=== PATIENT | male | born 1980 | race Caucasian/White ===

== ENCOUNTER 2020-10-17 04:38 | Emergency (ER) | payer OTHER ==
[~2020-10-17] VITALS: Ht 185.4 cm; Wt 122.8 kg
[2020-10-17 04:38] VITALS: BP 163/106
[2020-10-17] MEDS ORDERED: ONDANSETRON PF 4 MG/2 ML VIAL. IVP ONE (05:30)
[2020-10-17] MEDS ORDERED: MORPHINE SULFATE 4 MG/ML DISP.SYRIN. IV ONE (05:30)
[2020-10-17] MEDS ORDERED: IV RINGERS SOLUTION,LACTATED 1,000 ML IV ONE (05:30)
--- NOTE | 2020-10-17 05:47 | PHYS DOC ---
Adult General HPI HPI Patient is a 40-year-old male who presents to the emergency department with a chief complaint of right upper quadrant and right flank pain for approximately 7 months. States he is in the and retired and [facility] with these complaints and has yet to have any scans done or labs. States that he has had no relief from this pain and [facility] not [facility] so he decided to come to an outside emergency department. States over the last 6 or 7 months he has relatively constant pain at approximately a 2 or 3 out of 10, dull and achy in nature with episodes intermittently up to a 7 out of 10 with associated nausea but no vomiting. States that it sometimes does seem affected by what he eats, if he eats a salad is a little more tolerable but if he tries to eat any heavier foods such as a burger it will cause him to have an episode of pain with pain in his epigastrium, right upper quadrant right fla nk and severe nausea. States that the episodes usually last an hour or 2. States he does have a history of multiple hernia repairs and an appendectomy for perforated appendix when he was in [place]. Denies any alcohol or tobacco use. Endorses occasional marijuana use. Denies any headache, chest pain, shortness of breath, diarrhea, dysuria, hematuria or blood in the stool. (PRAVEEN RYAN MD) Review of Systems Review of Systems Review of systems otherwise unremarkable except noted in HPI (PRAVEEN RYAN MD) Current Medications Current Medications Current Medications Medications (Trade) Dose Ordered Sig/[place] Start Time Stop Time Status Last Admin Dose Admin Lactated Ringer's 1,000 ml @ 1,000 mls/hr 1X ONCE 10/17/20 05:30 10/17/20 06:29 UNV Morphine Sulfate (Morphine 4mg Syringe) 4 mg 1X ONCE 10/17/20 05:30 10/17/20 05:31 UNV Ondansetron HCl (Zofran) 4 mg 1X ONCE 10/17/20 05:30 10/17/20 05:31 UNV (PRAVEEN RYAN MD) Physical Exam Physical Exam Constitutional: Well developed, well nourished, no acute distress, non-toxic appearance. [] HENT: Normocephalic, atraumatic, bilateral external ears normal, oropharynx moist, no oral exudates, nose normal. [] Eyes: conjunctiva normal, no discharge. [] Neck: Normal range of motion, no tenderness, supple, no stridor. [] Cardiovascular:Heart rate regular rhythm, no murmur [] Lungs & Thorax: Bilateral breath sounds clear to auscultation [] Abdomen: Tenderness in the epigastrium, right upper quadrant and right flank. Belly soft, no obvious masses felt. No rebound or guarding. Skin: Warm, dry, no erythema, no rash. [] Back: No tenderness, Extremities: No tenderness, no cyanosis, no clubbing, ROM intact, no edema. [] Neurologic: Alert and oriented X 3, normal motor function, normal sensory function, no focal deficits noted. [] Psychologic: Affect normal, judgement normal, mood normal. [] (PRAVEEN RYAN MD) EKG EKG EKG with a rate of 68, QRS of 90, QTc of 394, no STEMI [] (PRAVEEN RYAN MD) Radiology/Procedures Radiology/Procedures [] (PRAVEEN RYAN MD) Radiology/Procedures PROCEDURE: CT ABD PELV W/ IV CONTRST ONLY EXAM: CT ABDOMEN/PELVIS WITH CONTRAST. HISTORY: Right flank and abdominal pain. TECHNIQUE: Computed tomography of the abdomen and pelvis was performed after the intravenous administration of iodinated contrast. One or more of the following individualized dose reduction techniques were utilized for this examination: 1. Automated exposure control. 2. Adjustment of the mA and/or kV according to patient size. 3. Use of iterative reconstruction technique. COMPARISON: None. FINDINGS: Lung windows through the visualized portions of the bases reveal mild atelectasis. Bone windows reveal no suspicious lesions. Diffuse hepatic steatosis is moderate to severe. There is focal fatty sparing along the gallbladder fossa. The pancreas, adrenal glands, gallbladder, kidneys and spleen are unremarkable. There are no pathologically enlarged lymph nodes. The left colon is decompressed but there is suggestion of mild wall thickening. The appendix is surgically absent. There is no small bowel obstruction. There are changes of mesh repair of an umbilical hernia. IMPRESSION: 1. Moderate to severe diffuse hepatic steatosis. 2. Correlate for mild left colitis. EXAM: CHEST ONE VIEW. HISTORY: Cough. COMPARISON: None. FINDINGS: A frontal view of the chest is obtained. There are no confluent infiltrates. There is no pneumothorax or pleural effusion. The heart is not enlarged. IMPRESSION: 1. No confluent infiltrates. (MILAGROS JAY MD) Heart Score Risk Factors: Risk Factors: DM, Current or recent (<one month) smoker, HTN, HLP, family history of CAD, obesity. Risk Scores: Risk Factors: DM, Current or recent (<one month) smoker, HTN, HLP, family history of CAD, obesity. (PRAVEEN RYAN MD) Course & Med Decision Making Course & Med Decision Making Patient is a 40-year-old male who presents with 7 months of right upper quadrant, right flank and epigastric pain associated with nausea Vital signs not concerning. Physical exam noted above. Patient placed on the monitor with IV access established. Started on IV fluid resuscitation. Given Zofran for nausea and morphine for pain. EKG noted above with no STEMI. Patient continued evaluation and treatment handed off to day team. [] (PRAVEEN RYAN MD) Dragon Disclaimer Dragon Disclaimer This electronic medical record was generated, in whole or in part, using a voice recognition dictation system. (PRAVEEN RYAN MD) Departure Departure: Impression: Primary Impression: Right upper quadrant pain Additional Impressions: Right flank pain Epigastric pain Nausea Hepatic steatosis Disposition: 01 DC HOME SELF CARE/HOMELESS Condition: STABLE Referrals: PCP,UNKNOWN (PCP) MISAEL GRIMES MD Patient Instructions: Nausea, Adult Scripts Ondansetron (ONDANSETRON ODT) 4 Mg Tab.rapdis 1 TAB PO PRN Q6-8HRS PRN for NAUSEA for 5 Days, #16 TAB Prov: MILAGROS JAY MD 10/17/20 Problem Qualifiers PRAVEEN RYAN MD Oct 17, 2020 05:47 MILAGROS JAY MD Oct 17, 2020 07:23
[2020-10-17] MEDS ORDERED: IOHEXOL 300 MG/ML 75 ML VIAL. IV ONE (06:00)
[2020-10-17] MEDS ORDERED: CONTRAST GIVEN. MC PRN (06:00)
[2020-10-17 06:17] LABS: BASO # 0.1 x10^3/uL (0.0-0.2); BASO % 1 % (0-3); EOS # 0.3 x10^3/uL (0.0-0.7); EOS % 4 % (0-3); HEMATOCRIT 55.7 % (39.0-53.0); HEMOGLOBIN 18.6 g/dL (13.0-17.5); LYMPH # 2.4 x10^3/uL (1.0-4.8); LYMPH % 25 % (24-48); MEAN CORPUSCULAR HEMOGLOBIN 31 pg (25-35); MEAN CORPUSCULAR HGB CONC 33 g/dL (31-37); MEAN CORPUSCULAR VOLUME 92 fL (79-100); MONO # 0.6 x10^3/uL (0.0-1.1); MONO % 6 % (0-9); NEUT # 6.5 x10^3uL (1.8-7.7); NEUT % 65 % (31-73); PLATELET COUNT 166 x10^3/uL (140-400); RED BLOOD COUNT 6.05 x10^6/uL (4.30-5.70); RED CELL DISTRIBUTION WIDTH 13.8 % (11.5-14.5); WHITE BLOOD COUNT 9.9 x10^3/uL (4.0-11.0)
[2020-10-17 06:21] LABS: CALCIUM 9.3 mg/dL (8.5-10.1); GFR 82.8; POTASSIUM 4.2 mmol/L (3.5-5.1)
[2020-10-17 06:21] LABS: BARBITURATES NEG (NEG); BENZODIAZEPINES NEG (NEG); CANNABINOIDS POS (NEG); COCAINE NEG (NEG); METHADONE NEG (NEG); OPIATES NEG (NEG); PHENCYCLIDINE NEG (NEG)
[2020-10-17 06:22] LABS: AMPHETAMINE/METHAMPHETAMINE NEG (NEG)
--- NOTE | 2020-10-17 06:24 | RAD ---
EXAM: CHEST ONE VIEW. HISTORY: Cough. COMPARISON: None. FINDINGS: A frontal view of the chest is obtained. There are no confluent infiltrates. There is no pneumothorax or pleural effusion. The heart is not en larged. IMPRESSION: 1. No confluent infiltrates. Electronically signed by: Sean Baird MD (10/17/2020 6:22 AM) [facility]
--- NOTE | 2020-10-17 06:25 | EKG ---
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
[2020-10-17 06:28] LABS: ALBUMIN 3.8 g/dL (3.4-5.0); MAGNESIUM 1.9 mg/dL (1.8-2.4); TOTAL BILIRUBIN 0.9 mg/dL (0.2-1.0); TOTAL PROTEIN 7.6 g/dL (6.4-8.2)
--- NOTE | 2020-10-17 06:42 | RAD ---
EXAM: CT ABDOMEN/PELVIS WITH CONTRAST. HISTORY: Right flank and abdominal pain. TECHNIQUE: Computed tomography of the abdomen and pelvis was performed after the intravenous administ ration of iodinated contrast. One or more of the following individualized dose reduction techniques w ere utilized for this examination: 1. Automated exposure control. 2. Adjustment of the mA and/or kV according to patient size. 3. Use of iterative reconstruction technique. COMPARISON: None. FINDINGS: Lung windows through the visualized portions of the bases reveal mild atelectasis. Bone win dows reveal no suspicious lesions. Diffuse hepatic steatosis is moderate to severe. There is focal fatty sparing along the gallbladder f fely. The pancreas, adrenal glands, gallbladder, kidneys and spleen are unremarkable. There are no pa thologically enlarged lymph nodes. The left colon is decompressed but there is suggestion of mild wall thickening. The appendix is surgi suzy absent. There is no small bowel obstruction. There are changes of mesh repair of an umbilical h ernia. IMPRESSION: 1. Moderate to severe diffuse hepatic steatosis. 2. Correlate for mild left colitis. Electronically signed by: Sean Baird MD (10/17/2020 6:39 AM) [facility]
[2020-10-17 06:43] LABS: BILIRUBIN,URINE NEG (NEG); CLARITY,URINE CLEAR; COLOR,URINE YELLOW; GLUCOSE,URINE NEG (NEG)
[2020-10-17 06:44] LABS: BACTERIA,URINE 0 /HPF (0-FEW); NITRITE,URINE NEG (NEG); RBC,URINE 0 /HPF (0-2); SQUAMOUS EPITHELIAL CELL,UR OCC /LPF; UROBILINOGEN,URINE 0.2 mg/dL (0.2 mg/dL); WBC,URINE OCC /HPF (0-4)
[2020-10-17] MEDS ORDERED: ONDA4TAB12 PO (07:22)
== END 2020-10-17 07:43 | disposition home or self-care (01) ==
LOC: ER 04:38
DX: K76.0 Fatty (change of) liver, not elsewhere classified (principal); R10.11 Right upper quadrant pain; R10.13 Epigastric pain; R11.0 Nausea
CPT/HCPCS: 36415; 71045; 74177; 80053; 80307; 81001; 83690; 83735; 84443; 84484; 85025; 93005; 96361; 96374; 96375; 99285; J2270; J2405; J7120; Q9967